=== PATIENT | female | born 1975 | race Caucasian/White ===

== ENCOUNTER 2023-03-11 12:41 | Emergency (ER) | payer OTHER ==
[2023-03-11] MEDS ORDERED: Sodium Chloride 0.9% 1000 ML 1,000 ML IV STA (13:26)
[2023-03-11 13:27] VITALS: TEMP 97.4
[2023-03-11] MEDS ORDERED: Sodium Chloride 0.9% 1000 ML 1,000 ML ONE (13:29)
[2023-03-11 13:52] LABS: ISTAT K 3.4 mmol/L (3.5-4.9)
[2023-03-11 13:53] LABS: ISTAT CREA 0.9 mg/dL (0.6-1.3); ISTAT iCA 1.17 mmol/L (1.12-1.32)
--- NOTE | 2023-03-11 13:53 | ERPHSYRPT ---
- History of Present Illness Historian: patient Exam Limitations: no limitations Patient Subjective Stated Complaint: C/O abdominal pain with N/V and diarrhea since 02/26/23 after eating sushi. Patient was initially afraid that she had some kind of foot poisioning but the symptoms have become worse instead of better with time. Patient states she literally can't keep anything down since Last 03/04/23. Patient also states that she started taking Wegovy injections on Mondays on 02/25/23. Triage Nursing Assessment: Patient ambulated back to ER. She is alert and o riented. No SOB. Bowel sounds present. Abdomen is soft. DSOUZA WNL. No active vomiting during assessment; states vomited just prior to coming into the ER today. Physician History: 48 yo WF w N/V/D/abdominal pain x 2 wks. Pain is RLQ/4 out of 10/stabbing/nothing makes better or worse. She denies hematemesis/melena/hematochezia/dysuria/hematuria/fever/cough/coryza. Pt also [facility] Br[facility] 2 wks ago. Surgical hx includes cholecystectomy/TAHBSO/umbilical hernia reepair. Timing/Duration: other (2 wks) Quality: stabbing Abdominal Pain Onset Location: RLQ Pain Radiation: no radiation Severity of Pain-Max: moderate Severity of Pain-Current: moderate Modifying Factors: Improves With: nothing Associated Symptoms: diarrhea, nausea, vomiting Previous symptoms: no prior history Allergies/Adverse Reactions: No Known Drug Allergies Allergy (Verified 03/11/23 13:09) Home Medications: Ondansetron [Ondansetron Odt] 4 mg PO BID PRN 03/11/23 [History] PARoxetine HCL [Paxil] 1 tab PO DAILY 03/11/23 [History] Semaglutide [Wegovy] 1.7 mg SQ WEEKLY 03/11/23 [History] Hx Tetanus, Diphtheria Vaccination/Date Given: Yes Hx Influenza Vaccination/Date Given: Yes Hx Pneumococcal Vaccination/Date Given: No Immunizations Up to Date: Yes Travel Risk - International Travel Have you traveled outside of the country in past 3 weeks: No - Coronavirus Screening Are you exhibiting any of the following symptoms?: Yes Symptoms: Fever, Vomiting/Diarrhea Close contact with a COVID-19 positive Pt in past 14-21 Days: No - Vaccine Status Have you recieved a Covid-19 vaccination: Yes 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 - Review of Systems Constitutional: No Symptoms, Lethargy, Malaise Eyes: No Symptoms Ears, Nose, & Throat: No Symptoms Respiratory: No Symptoms Cardiac: No Symptoms Abdominal/Gastrointestinal: No Symptoms, Abdominal Pain, Nausea, Vomiting, Diarrhea Genitourinary Symptoms: No Symptoms Musculoskeletal: No Symptoms Skin: No Symptoms Neurological: No Symptoms Psychological: No Symptoms Endocrine: No Symptoms Hematologic/Lymphatic: No Symptoms Immunological/Allergic: No Symptoms - Past Medical History Pertinent Past Medical History: Yes Musculoskeletal History: Fractures GI Medical History: Gallbladder Disease, Hernia Other Medical History: JAW - Past Surgical History Past Surgical History: Yes Gastrointestinal: Cholecystectomy, Hernia Repair Female Surgical History: Hysterectomy, Section - Social History Smoking Status: Never smoker Exposure to second hand smoke: No Drug Use: none Patient Lives Alone: No - Female History Hx Now: No (HYSTERECTOMY) - Nursing Vital Signs Nursing Vital Signs: Initial Vital Signs Temperature 97.4 F 03/11/23 13:00 Pulse Rate 90 03/11/23 13:00 Respiratory Rate 13 03/11/23 13:00 Blood Pressure 139/90 03/11/23 13:00 O2 Sat by Pulse Oximetry 97 03/11/23 13:00 Pain Scale Pain Intensity 0 Mildly hypertensive - Physical Exam General Appearance: no apparent distress Eye Exam: PERRL/EOMI, eyes nml inspection Ears, Nose, Throat Exam: normal ENT inspection, TMs normal, pharynx normal, moist mucous membranes Neck Exam: normal inspection, non-tender, supple, full range of motion, No meningismus, No mass, No Brudzinski, No Kernig's Respiratory Exam: normal breath sounds, lungs clear, airway intact, No respiratory distress Cardiovascular Exam: regular rate/rhythm, normal heart sounds, normal peripheral pulses, capillary refill <2 sec, No murmur Gastrointestinal/Abdomen Exam: soft, normal bowel sounds, tenderness (Mild diffuse TTP), No guarding, No rebound Extremity Exam: normal inspection, normal range of motion Neurologic Exam: alert, oriented x 3, cooperative, 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, normal mood/affect, nml cerebellar function, nml station & gait, sensation nml Skin Exam: normal color, warm, dry Lymphatic Exam: No adenopathy SpO2 Interpretation: normal SpO2: 94 O2 Delivery: Room Air - Course Nursing assessment & vital signs reviewed: Yes - CT Exams Abdomen/Pelvis CT Interpretation: Discussed w/radiologist (Enteritis) Ordered Tests: Active Orders 24 hr Category Date Time Status ABDOMEN AND PELVIS W CONTRAST [CT] Stat Exams 03/11/23 15:14 Completed AMYLASE Stat Lab 03/11/23 13:25 Completed CBC W DIFF Stat Lab 03/11/23 13:25 Completed LIPASE Stat Lab 03/11/23 13:25 Completed Lactic Acid Stat Lab 03/11/23 13:25 Completed TROPONIN Q4H Lab 03/11/23 17:30 Ordered TROPONIN Q4H Lab 03/11/23 21:30 Ordered UA W/RFX UR CULTURE Stat Lab 03/11/23 13:27 Completed Medication Summary Discontinued Medications Generic Name Dose Route Start Last Admin Trade Name Freq PRN Reason Stop Dose Admin Droperidol 2.5 mg 03/11/23 13:26 03/11/23 13:35 Droperidol 5 Mg/2 Ml Vial IM 03/11/23 13:27 2.5 mg STAT ONE Administration Droperidol Confirm 03/11/23 13:29 Droperidol 5 Mg/2 Ml Vial Administered 03/11/23 13:30 Dose 5 mg .ROUTE .STK-MED ONE Sodium Chloride 1,000 mls @ 999 mls/hr 03/11/23 13:26 03/11/23 14:39 Sodium Chloride 0.9% 1000 Ml IV 03/11/23 14:26 Infused .Q1H1M STA Infusion Sodium Chloride Confirm 03/11/23 13:29 Sodium Chloride 0.9% 1000 Ml Administered 03/11/23 13:30 Dose 1,000 mls @ ud .ROUTE .STK-MED ONE Lab/Rad Data: Laboratory Result Diagrams 03/11/23 13:25 03/11/23 13:25 Laboratory Results 03/11/23 03/11/23 03/11/23 Range/Units 14:00 13:30 13:27 WBC (4.0-10.5) x10^3/uL RBC (4.1-5.4) x10^6/uL Hgb (12.0-16.0) g/dL Hct (35-47) % MCV (78-100) fL MCH (26-32) pg MCHC (32-36) g/dL RDW (11.5-14.0) % Plt Count (150-450) x10^3/uL MPV (7.5-11.0) fL Gran % (36.0-66.0) % Immature Gran % (Auto) (0.00-0.4) % Nucleat RBC Rel Count (0.00-0.1) % Eos # (Auto) (0-0.5) x10^3/uL Immature Gran # (Auto) (0.00-0.03) x10^3u/L Absolute Lymphs (auto) (1.0-4.6) x10^3/uL Absolute Monos (auto) (0.0-1.3) x10^3/uL Absolute Nucleated RBC (0.00-0.01) x10^3u/L Lymphocytes % (24.0-44.0) % Monocytes % (0.0-12.0) % Eosinophils % (0.00-5.0) % Basophils % (0.0-0.4) % Absolute Granulocytes (1.4-6.9) x10^3/uL Basophils # (0-0.4) x10^3/uL Sodium Direct (138-146) mmol/L Potassium (3.5-4.9) mmol/L Chloride (98-109) mmol/L Carbon Dioxide (24-29) mmol/L Venous BUN (8-26) mg/dL Creatinine (0.6-1.3) mg/dL Glucose (70-105) mg/dL Lactic Acid (0.4-2.0) Ionized Calcium (1.12-1.32) mmol/L Troponin 0.01 (0.00-0.03) ng/mL Amylase (30-110) U/L Lipase (23-300) U/L Urine Color Yellow (Yellow) Urine Appearance Clear (Clear) Urine pH 6.0 (4.6-8.0) Ur Specific [place] 1.015 (1.005-1.030) Urine Protein Negative (Negative) Urine Glucose (UA) Negative (Negative) mg/dL Urine Ketones Negative (Negative) Urine Blood Negative (Negative) Urine Nitrite Negative (Negative) Urine Bilirubin Negative (Negative) Urine Urobilinogen 0.2 (0.2) mg/dL Ur Leukocyte Esterase Negative (Negative) U Hyaline Cast (Auto) NONE SEEN (0-2) /LPF Urine Microscopic RBC 0-2 (0-5) /HPF Urine Microscopic WBC 0-2 (0-5) /HPF Ur Epithelial Cells None Seen (None Seen) /HPF Urine Bacteria None Seen (None Seen) /HPF Urine Culture Reflexed NO (NO) Influenza Type A Ag NEGATIVE (NEGATIVE) Influenza Type B Ag NEGATIVE (NEGATIVE) RSV (PCR) NEGATIVE (NEGATIVE) SARS-CoV-2 (PCR) NEGATIVE (NEGATIVE) 03/11/23 03/11/23 03/11/23 Range/Units 13:25 13:25 13:25 WBC 13.0 H (4.0-10.5) x10^3/uL RBC 5.33 (4.1-5.4) x10^6/uL Hgb 14.9 (12.0-16.0) g/dL Hct 43.3 (35-47) % MCV 81.2 (78-100) fL MCH 28.0 (26-32) pg MCHC 34.4 (32-36) g/dL RDW 12.5 (11.5-14.0) % Plt Count 272 (150-450) x10^3/uL MPV 10.5 (7.5-11.0) fL Gran % 75.9 H (36.0-66.0) % Immature Gran % (Auto) 0.3 (0.00-0.4) % Nucleat RBC Rel Count 0.0 (0.00-0.1) % Eos # (Auto) 0.20 (0-0.5) x10^3/uL Immature Gran # (Auto) 0.04 H (0.00-0.03) x10^3u/L Absolute Lymphs (auto) 2.27 (1.0-4.6) x10^3/uL Absolute Monos (auto) 0.58 (0.0-1.3) x10^3/uL Absolute Nucleated RBC 0.00 (0.00-0.01) x10^3u/L Lymphocytes % 17.5 L (24.0-44.0) % Monocytes % 4.5 (0.0-12.0) % Eosinophils % 1.5 (0.00-5.0) % Basophils % 0.3 (0.0-0.4) % Absolute Granulocytes 9.87 H (1.4-6.9) x10^3/uL Basophils # 0.04 (0-0.4) x10^3/uL Sodium Direct 140 (138-146) mmol/L Potassium 3.4 L (3.5-4.9) mmol/L Chloride 103 (98-109) mmol/L Carbon Dioxide 24 (24-29) mmol/L Venous BUN 17 (8-26) mg/dL Creatinine 0.9 (0.6-1.3) mg/dL Glucose 118 H (70-105) mg/dL Lactic Acid 1.6 (0.4-2.0) Ionized Calcium 1.17 (1.12-1.32) mmol/L Troponin (0.00-0.03) ng/mL Amylase 54 (30-110) U/L Lipase 89 (23-300) U/L Urine Color (Yellow) Urine Appearance (Clear) Urine pH (4.6-8.0) Ur Specific [place] (1.005-1.030) Urine Protein (Negative) Urine Glucose (UA) (Negative) mg/dL Urine Ketones (Negative) Urine Blood (Negative) Urine Nitrite (Negative) Urine Bilirubin (Negative) Urine Urobilinogen (0.2) mg/dL Ur Leukocyte Esterase (Negative) U Hyaline Cast (Auto) (0-2) /LPF Urine Microscopic RBC (0-5) /HPF Urine Microscopic WBC (0-5) /HPF Ur Epithelial Cells (None Seen) /HPF Urine Bacteria (None Seen) /HPF Urine Culture Reflexed (NO) Influenza Type A Ag (NEGATIVE) Influenza Type B Ag (NEGATIVE) RSV (PCR) (NEGATIVE) SARS-CoV-2 (PCR) (NEGATIVE) - Progress Progress Note: 03/11/23 16:38 Nursing note and vital signs reviewed No food or housing insecurities noted All lab results reviewed and shared w pt CT result reviewed and shared w pt 1L NS bolus/2.5mg IM Droperidol Pt has an enteritis and will treat w Flagyl 500mg tid x 1wk and Bentyl prn. Also, possibility of Wegovy causing pt's symptoms not excluded. 03/11/23 16:39 Counseled pt/family regarding: lab results, diagnosis, need for follow-up, rad results Medical Desision Making - Diagnostic Testing Diagnostic test were ordered, analyzed, and reviewed by me: Yes Radiological Interpretation: Reviewed by me - Risk of complications The pt has a mod risk of morbidity or mortality based on: Need for prescription drug management - Departure Departure Disposition: Home Clinical Impression: Enteritis Condition: Stable Critical Care Time: No Referrals: JI MATA NP [Primary Care Provider] - Follow up/PCP as directed Instructions: Severe Abdominal Pain, Adult (DC) Additional Instructions: Flagyl three times a day for 1 week Bentyl as needed for pain Fluids Follow up with your family MD Return to ER for increasing abdominal pain or temperature greater than 100.5 Prescriptions: Dicyclomine HCl 20 mg [Bentyl 20 mg] 20 mg PO QID PRN PRN #14 tablet PRN Reason: Pain Metronidazole 500 mg [Flagyl 500 MG] 500 mg PO TID 7 Days #21 tablet
[2023-03-11 14:00] LABS: Absolute Neutrophil Ct (ANC) 9.87 x10^3/uL (1.4-6.9); BASOPHIL % 0.3 % (0.0-0.4); Basophil (Absolute #) 0.04 x10^3/uL (0-0.4); Eosinophil % 1.5 % (0.00-5.0); Hematocrit 43.3 % (35-47); Hemoglobin 14.9 g/dL (12.0-16.0); IMMATURE GRAN # 0.04 x10^3u/L (0.00-0.03); IMMATURE GRAN % 0.3 % (0.00-0.4); Lymphocyte (Absolute #) 2.27 x10^3/uL (1.0-4.6); Lymphocytes % 17.5 % (24.0-44.0); Mean Cell Volume 81.2 fL (78-100); Mean Corpuscular Hgb Concent. 34.4 g/dL (32-36); Mean Platelet Volume 10.5 fL (7.5-11.0); Monocyte (Absolute #) 0.58 x10^3/uL (0.0-1.3); Monocytes % 4.5 % (0.0-12.0); Neutrophil % 75.9 % (36.0-66.0); Platelet Count 272 x10^3/uL (150-450); Red Blood Count 5.33 x10^6/uL (4.1-5.4); Red Cell Distribution Width 12.5 % (11.5-14.0)
[2023-03-11 14:42] LABS: INFLUENZA A NEGATIVE (NEGATIVE); INFLUENZA B NEGATIVE (NEGATIVE); RESPIRATORY SYNCTIAL VIRUS NEGATIVE (NEGATIVE); SARS-CoV-2 Xpert Express NEGATIVE (NEGATIVE)
[2023-03-11 15:28] LABS: Appearance Clear (Clear); Bacteria None Seen /HPF (None Seen); Bilirubin Negative (Negative); Blood Negative (Negative); Epithelial Cells None Seen /HPF (None Seen); Glucose, Urine Negative (Negative); Hyaline Casts NONE SEEN /LPF (0-2); Ketones Negative (Negative); Leukocyte Esterase Negative (Negative); Nitrite Negative (Negative); Protein,Urine Dip Negative (Negative); RBC 0-2 /HPF (0-5); Specific Gravity 1.015 (1.005-1.030); Urobilinogen 0.2 mg/dL (0.2); WBC 0-2 /HPF (0-5)
[2023-03-11 15:35] LABS: ADD URINE CULTURE? NO (NO)
[2023-03-11 16:26] VITALS: BP 139/77; PULSE 83; RESP 18
--- NOTE | 2023-03-11 16:29 | XRAY ---
Indication: Right lower quadrant pain. Vomiting and diarrhea 1 week. Multiple contiguous axial images obtained through the abdomen and pelvis using 80 cc Isovue 370 contrast. Comparison: None Lung bases clear with incidental tiny right middle lobe calcified granuloma. Heart not enlarged. Small hiatal hernia. Noncontrasted stomach and bowel loops appear nonobstructed. Several small bowel loops are mildly fluid distended up to 2.4 cm with mild jejunal bowel wall thickening favoring enteritis. Normal appendix. Minimal sigmoid diverticulosis without diverticulitis. Fatty liver, 7 mm right mid renal cortical cyst, hysterectomy, and cholecystectomy. No free fluid/air. Remaining liver, pancreas, spleen, adrenal glands, kidneys, ureters, bladder, and aorta are unremarkable. No pathological retroperitoneal lymphadenopathy. Osseous structures intact with mild degenerative changes throughout the thoracolumbar spine greatest at L5-S1. Impression: 1. CT findings favoring mild enteritis. 2. Chronic findings including hiatal hernia, sigmoid diverticulosis, right renal cyst, and degenerative spondylosis.
[2023-03-11 16:37] VITALS: O2SAT 94
== END 2023-03-11 16:51 | disposition home or self-care (01) ==
LOC: ED 12:41
DX: K52.9 Noninfective gastroenteritis and colitis, unspecified (principal); R11.2 Nausea with vomiting, unspecified; R10.31 Right lower quadrant pain; Z79.85 Long-term (current) use of injectable non-insulin antidiabetic drugs; Z79.899 Other long term (current) drug therapy
CPT/HCPCS: 0241U; 36000; 36415; 74177; 80047; 81001; 82150; 83605; 83690; 84484; 85025; 96372; 99284